=== PATIENT | male | born 1985 | race African-American/Black ===

== ENCOUNTER 2020-04-19 13:40 | Emergency (ER) | payer OTHER, BC ==
[~2020-04-19] VITALS: Ht 165.1 cm; Wt 68.0 kg
[2020-04-19 13:56] VITALS: BP 151/97
[2020-04-19] MEDS ORDERED: TIZANIDINE4 MG/1 TA1 PO (14:09)
[2020-04-19] MEDS ORDERED: MOBIC15 MG PO (14:09)
== END 2020-04-19 14:31 | disposition home or self-care (01) ==
LOC: ER 13:40
DX: S30.0XXA Contusion of lower back and pelvis, initial encounter (principal); M25.511 Pain in right shoulder; F17.210 Nicotine dependence, cigarettes, uncomplicated; V49.9XXA Car occupant (driver) (passenger) injured in unspecified traffic accident, initial encounter; Y93.89 Activity, other specified; Y92.89 Other specified places as the place of occurrence of the external cause; Y99.8 Other external cause status